=== PATIENT | male | born 1965 | race Caucasian/White ===

== ENCOUNTER 2025-05-30 18:26 | Inpatient (IN) | payer BC ==
[~2025-05-30] VITALS: Ht 188 cm; Wt 100.1 kg
[~2025-05-30 18:26] MED LIST: LIDOcaine 1% 30ml preserv. free vial ONE; fentaNYL/PF 50MCG/1 ML 2ML syringe ONE; heparin 1,000unit/ml 10ml vial 10 ML ONE; midazolam 1 mg/ML 2ml injection ONE
[2025-05-30 20:58] VITALS: BP_SYST 113; PULSE 53; RESP 18; O2SAT 100
[2025-05-30] MEDS ORDERED: tirofiban 12.5mg in NS 250mL 250 ML IV ONE (21:38)
[2025-05-30 22:32] VITALS: PULSE 49; RESP 16; O2SAT 100
[2025-05-30 22:44] LABS: ABG BASE EXCESS -3.4 mmol/L (-2.0-3.0); ABG HCO3 21.1 mmol/L (21.0-28.0); ABG OXYGEN SATURATION 99.8 % (94.0-98.0); ABG PCO2 (T) 33.6 mmHg (35.0-48.0); ABG PH (T) 7.408 (7.350-7.450); ABG PO2 (T) 387.0 mmHg (83.0-108.0); FCOHb 0.5 % (0.5-1.5); FHHb 0.2 % (0.0-5.0); FIO2 100.0 mmHg/%; FMetHb 0.3 % (0.0-1.5); FO2Hb 99.0 % (94.0-98.0); MODE prvc; PATIENT TEMPERATURE 35.4; RESPIRATORY RATE 16 b/min; TIDAL VOLUME 500 mL; TOTAL HEMOGLOBIN 13.3 G/dl (13.5-17.5)
[2025-05-30 23:00] VITALS: BP 133/78; PULSE 52; RESP 16; TEMP 96; O2SAT 100
[2025-05-30] MEDS: propofol 1000mg/100ml bottle 100 ML IV ONE (23:02)
[2025-05-30] MEDS: propofol 1000mg/100ml bottle 100 ML IV SCH (23:03)
[2025-05-30] MEDS: normal saline 1000ml 1,000 ML IV SCH (23:05)
[2025-05-30] MEDS: FENTANYL-0.9 % NACL/PF 100 ML IV SCH (23:11)
[2025-05-30 23:23] LABS: MEAN PLATELET VOLUME 7.0 FL (7.4-10.4); RED CELL DISTRIBUTION WIDTH 13.3 % (11.5-14.5)
[2025-05-30] MEDS ORDERED: OXAZEpam 15mg capsule PO PRN (23:40)
[2025-05-30] MEDS ORDERED: ondansetron/PF 4mg/2ml inj IV PRN (23:40)
[2025-05-30 23:48] LABS: CREATININE 0.71 MG/DL (0.60-1.10); PHOSPHORUS 2.9 MG/DL (2.3-4.5); TOTAL CARBON DIOXIDE 21.4 MMOL/L (24-32); eCRCL 129 ML/MIN; eGFR > 90 ML/MIN
[2025-05-31] VITALS (28 sets, daily range): BP systolic 103–151; BP diastolic 48–85; PULSE 50–82; RESP 10–25; TEMP 97.5–99.7; O2SAT 80–100
[2025-05-31] MEDS: famotidine/PF 10 mg/ml inj IV SCH (00:03)
[2025-05-31 03:09] LABS: MEAN PLATELET VOLUME 7.6 FL (7.4-10.4); RED CELL DISTRIBUTION WIDTH 13.3 % (11.5-14.5)
[2025-05-31 03:12] LABS: CREATININE 0.77 MG/DL (0.60-1.10); TOTAL CARBON DIOXIDE 21.1 MMOL/L (24-32); eCRCL 119 ML/MIN; eGFR > 90 ML/MIN
[2025-05-31 03:22] LABS: ABG BASE EXCESS -3.3 mmol/L (-2.0-3.0); ABG HCO3 19.4 mmol/L (21.0-28.0); ABG OXYGEN SATURATION 99.2 % (94.0-98.0); ABG PCO2 (T) 27.7 mmHg (35.0-48.0); ABG PH (T) 7.462 (7.350-7.450); ABG PO2 (T) 239.0 mmHg (83.0-108.0); FCOHb 0.3 % (0.5-1.5); FHHb 0.8 % (0.0-5.0); FIO2 55.0 mmHg/%; FMetHb 0.3 % (0.0-1.5); FO2Hb 98.6 % (94.0-98.0); PATIENT TEMPERATURE 36.4; PEEP 6 cm H2O; RESPIRATORY RATE 16 b/min; TIDAL VOLUME 500 mL; TOTAL HEMOGLOBIN 12.7 G/dl (13.5-17.5)
[2025-05-31 04:01] LABS: MODE VENT- PRVC
--- NOTE | 2025-05-31 06:16 | RADIOLOGY REPORT ---
CHEST RADIOGRAPH Indication: ET Tube PLacement Technique: Single frontal view of the chest was obtained COMPARISON: None FINDINGS: Lines and Tubes: The endotracheal tube tip projects approximately 4.7 cm above the level of the jenny a. Enteric catheter courses below the level of the diaphragm and terminates beyond the inferior daphney n of the image. Lungs: Clear Pleura: No effusion. No pneumothorax. Cardiomediastinal contours: Unremarkable Bones: Unremarkable IMPRESSION: 1. No acute disease. 2. Endotracheal tube and enteric catheter as above.
--- NOTE | 2025-05-31 06:25 | ELECTROCARDIOGRAPH REPORT ---
[facility] Test Date: 2025-05-31 Test Time: 06:24:22 Pat Name: TOD SAMPLES Department: 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 Anny Erazo Please click the below link to view image of tracing.
[2025-05-31] MEDS ORDERED: ATOR10TA70 PO (07:15)
[2025-05-31] MEDS ORDERED: METO-395 PO (07:15)
[2025-05-31] MEDS ORDERED: LISI5TAB22 PO (07:15)
[2025-05-31] MEDS ORDERED: atropine 0.1mg/ml 10ml syringe ONE (08:00)
[2025-05-31] MEDS: HYDROcodone/acetaminophen 5mg/325mg tablet PO PRN (09:30)
[2025-05-31] MEDS: HYDROmorphone inj. 0.5 MG/0.5 ML DISP.SYRIN IV PRN (09:31)
[2025-05-31] MEDS: aspirin 81mg, enteric-coated 1 TAB TABLET.DR PO SCH (10:25)
[2025-05-31 11:28] LABS: CREATININE 0.69 MG/DL (0.60-1.10); TOTAL CARBON DIOXIDE 22.6 MMOL/L (24-32); eCRCL 132 ML/MIN; eGFR > 90 ML/MIN
[2025-05-31] MEDS: magnesium sulf-water 2g/50mL 50 ML IV ONE (11:54)
--- NOTE | 2025-05-31 12:03 | CONSULTATION REPORT ---
History of Present Illness Providers to CC CC: ROXANN ERAZO MD ~ Reason for Admit\Admit Dx: Cardiology consultation History of Present Illness This is a 60-year-old male who presented secondary to chest pain and shortness for breath. Found to have a STEMI to the anterior region. He was transferred from [facility]. Had a cardiac arrest at [facility] that was ventricular fibrillation. Underwent cardioversion. He then went into a wide complex tachycardia that was treated with magnesium and amiodarone. He also sustained a cardiac arrest in route which was reportedly non shockable. Upon arrival patient was taken emergently to the cardiac catheterization lab where he underwent PCI of the LAD with Dr. Colette Erazo. This morning he was extubated. Currently complaining of chest pain that is worse with breathing, palpation and movement. Likely secondary to CPR. He states no current shortness for breath. Allergies: Coded Allergies: No Known Drug Allergies (Verified Allergy, Unknown, 05/30/25) Home Medications Home Medications Active Reported Atorvastatin Calcium 10 Mg Tablet 1 Tab PO HS Metoprolol Succinate 25 Mg Tab.sr.24h 1 Tab PO DAILY Lisinopril 5 Mg Tablet 1 Tab PO DAILY Past Medical History Medical History Comment Hypertension Hyperlipidemia A leaky heart valve Untreated sleep apnea pending further testing Past Surgical History Surgical History Comment No surgical history Past Family History Family History Comment Father had an SD in his 40s. Mother had history of CHF Past Social History Social History Comment Nonsmoker. Occasional alcohol use. No recreational drugs. Physical Exam Last Vital Signs Recorded: RN Vital Signs have been reviewed: Yes, Temperature: 98.2, Source: Temporal, Heart Rate: 77, Respiratory Rate: 13, BP: 146/82, Pulse Oximetry: 97, Weight: 100.100 Physical Exam General: Awake, alert, oriented. No apparent distress Neck: Supple. Normal range of motion. No JVD Respiratory: Lungs are clear to auscultation bilaterally. No respiratory distress. Chest: Normal shape and size. No accessory muscle use. Cardiovascular: Regular rate and rhythm. S1-S2. +murmur. No gallop, rub. Gastrointestinal: Abdomen is soft. Nontender to palpation. Bowel sounds present. Extremities: No lower extremity edema, cyanosis or clubbing. Neurologic: Alert and oriented x4. Nonfocal Psychiatric: Normal mood and affect. Skin: Normal color. Warm and dry. Review of Systems ROS Review of systems negative except documented in HPI. Results Echocardiogram Echocardiogram Preliminary echocardiogram demonstrates an LVEF of 40-45% with moderate to severe MR Diagram Lab Result Diagram: 05/31/25 0225 05/31/25 5405 Assessment/Plan Additional Plan This is a 60-year-old male who presented with chest pain. The following is his problem list: STEMI Status post PCI of the LAD --Aggrastat for 18 hours --Brilinta 90 mg twice daily --aspirin 81 mg daily --increase statin to 80 mg daily and check lipids. --continue home metoprolol --continue home lisinopril --referral for cardiac rehab. Hopefully can be arranged and patient's hometown. Cardiac arrest with ROSC --see above Heart failure with mid-range ejection fraction TTE demonstrates an LVEF of 40-45% with wall motion abnormalities present. --continue metoprolol succinate --continue lisinopril --repeat echocardiogram outpatient Nonrheumatic mitral insufficiency TTE demonstrates moderate to severe MR No current shortness for breath --Lasix as needed for shortness for breath --continue outpatient follow up Hypertension --continue home meds Case discussed with Dr. Colette Erazo. Requires monitoring for at least 48 hours post procedure. Supervising MD Supervising Physician: MIKY Benson NP May 31, 2025 12:03
[2025-05-31] MEDS: potassium Cl 20 mEq SR tablet PO STA (12:58)
[2025-05-31] MEDS: tirofiban 12.5mg in NS 250mL 250 ML IV SCH (13:01)
--- NOTE | 2025-05-31 17:57 | CONSULTATION REPORT - RESIDENT ---
Consult Providers to CC Resident Creating Document: IGNACIOKATELYNWULIZBETH POLANCO History of Present Illness Primary Medical Doctor: Dr. Young, [facility], [facility] Reason for Admit\Complaint: STEMI History of Present Illness He has a 60-year-old gentleman with past medical history of hypertension, leaky heart valve, hyperlipidemia, status post sudden cardiac arrest/VF with ROSC with cardioversion, magnesium & amiodarone and he was transferred from [facility] for STEMI. He endorses chest pain, retrosternal, 8 to 9/10, squeezing type of pain, aggravating with exertion. Had a cardiac arrest at [facility] that was ventricular fibrillation &Underwent cardioversion. He developed wide complex tachycardia that was treated with magnesium and amiodarone. He also sustained a non shockable cardiac arrest in route to [facility]. Upon arrival patient was taken emergently to the cardiac catheterization lab where he underwent PCI of the LAD with Dr. Colette Erazo. He was extubated this morning and still complaining of the chest pain but a lot better from the previous day. He denied shortness of breath, palpitations, wheezing, swelling of the legs, facial puffiness, abdominal pain, abdominal distention. We are consulted for hospitalist services while patient is in ICU and he was later shifted from ICU to PCU. Allergies: Coded Allergies: No Known Drug Allergies (Verified Allergy, Unknown, 05/30/25) Home Medications Home Medications Active Reported Atorvastatin Calcium 10 Mg Tablet 1 Tab PO HS Metoprolol Succinate 25 Mg Tab.sr.24h 1 Tab PO DAILY Lisinopril 5 Mg Tablet 1 Tab PO DAILY Past Medical History Past Medical History Hypertension Hyperlipidemia Mitral regurgitation Sleep apnea Childhood asthma Past Surgical History Surgical History Comment Noncontributory Family History Family History: FH: CAD (coronary artery disease) FH: CHF (congestive heart failure) FH: coronary artery disease Past Social History Social History Comment Denied smoking, illicit recreational drug use. Occasional alcohol use -couple of drinks of whiskey a week ROS ROS Reviewed in full and negative except positive pertinent as in HPI Exam Vitals: Vital Signs Date Time Temp Pulse Resp B/P (MAP) Pulse Ox O2 Delivery O2 Flow Rate FiO2 05/31/25 17:00 97.6 78 15 132/82 (99) 94 Room Air 05/31/25 16:00 3.0 05/31/25 08:00 40 General: General: Awake, alert, oriented. No apparent distress Neck: Supple. Normal range of motion. No JVD Respiratory: Lungs are clear to auscultation bilaterally. No respiratory distress. Chest: Normal shape and size. No accessory muscle use. Cardiovascular: Regular rate and rhythm. S1-S2. +murmur. No gallop, rub. Gastrointestinal: Abdomen is soft. Nontender to palpation. Bowel sounds present. Extremities: No lower extremity edema, cyanosis or clubbing. Systolic murmur over the mitral and aortic area 3/6. Neurologic: Alert and oriented x4. Nonfocal Psychiatric: Normal mood and affect. Skin: Normal color. Warm and dry. Diagnostic Data Last Recorded Lab Results: 05/31/25 0225 05/31/25 1055 Additional Plan STEMI status post PCI of LAD Cardiac arrest (VFib) status post successful ROSC Acute systolic heart failure with ejection fraction of 40-45% Moderate severe mitral regurgitation Hypertension Hyperlipidemia Normocytic normochromic anemia Hyperchloremia Hypocalcemia Mild protein malnutrition Hypoalbuminemia Vitals are stable with room air. CBC showed normocytic normochromic anemia. CMP is unremarkable except CO2 of 22.6. A1c of 5.5. Albumin of 2.[address] Erazo is on board . Continuing aspirin 81 mg, Brilinta 90 mg p.o. b.i.d., atorvastatin 80 mg, lisinopril 5 mg, metoprolol 25 mg Received Aggrastat for 18 hours. We will referral for cardiac rehab. Follow up with repeat echocardiogram and outpatient TTE demonstrates moderate to severe MR. We will continue Lasix as p.r.n. for shortness for breath LDL is 96 and we started ezetimibe 10 mg in addition to atorvastatin 80 mg We will continue to monitor tele. Status: Full code Diet: Heart healthy diet PT: Ordered Prognosis: Guarded Wu [place] IM resident, PGY2 Date of Service: May 31, 2025 Billing Provider: SUNIL ZAMORA MD, VENKATESH, RES May 31, 2025 17:57
[2025-05-31] MEDS ORDERED: magnesium sulf-water 2g/50mL 50 ML IV PRN (18:00)
[2025-05-31] MEDS ORDERED: potassium Cl 40MEQ/1/2NS 520ml 520 ML IV PRN (18:00)
[2025-05-31] MEDS ORDERED: potassium Cl 20 mEq SR tablet PO PRN ×2 (18:00)
[2025-05-31] MEDS ORDERED: sodium phosphate inj. 30 MMOL in dextrose 5%-water 250 ML IV PRN (18:00)
[2025-05-31] MEDS ORDERED: sodium phosphate inj. 15 MMOL in dextrose 5%-water 250 ML IV PRN (18:00)
[2025-05-31] MEDS ORDERED: magnesium sulf-water 4G/100mL 100 ML IV PRN (18:00)
[2025-05-31] MEDS ORDERED: magnesium Cl slow-release 64mg tablet PO PRN (18:00)
[2025-05-31] MEDS: potassium Cl 20 mEq SR tablet PO SCH (18:04)
[2025-05-31 18:23] LABS: CHOL/HDL RATIO 2.9 (0.00-4.99); LDL CHOLESTEROL 96 MG/DL (50-100)
[2025-05-31] MEDS: K and/or MAG REPLACEMENT MC SCH (19:27)
--- NOTE | 2025-05-31 20:13 | CONSULTATION REPORT - RESIDENT ---
Consult Providers to CC Resident Creating Document: CLEMENTE SOLIS, RES CC: MARINA SOUTH MD History of Present Illness Reason for Admit\Complaint: STEMI History of Present Illness A 60-year-old male with PMH of HTN, HLD was transferred from [place] in view of STEMI and cardiac arrest. Patient went to [facility] this morning in view of chest pain angina equivalent. On further investigations patient was found to have ST elevations in anterior leads and patient coded while in the hospital (non shockable rhythm). On the way of being transported to [facility] patient coded again which is around she couple rhythm again. Patient was immediately transported to the label designer, stent placed in LAD and transferred to ICU for further monitoring. Allergies: Coded Allergies: No Known Drug Allergies (Verified Allergy, Unknown, 05/30/25) Home Medications Home Medications Active Reported Atorvastatin Calcium 10 Mg Tablet 1 Tab PO HS Metoprolol Succinate 25 Mg Tab.sr.24h 1 Tab PO DAILY Lisinopril 5 Mg Tablet 1 Tab PO DAILY Past Medical History Past Medical History Mitral regurgitation Sleep apnea Asthma HTN HLD Past Surgical History Surgical History Comment None Family History Family History: FH: CAD (coronary artery disease) FH: CHF (congestive heart failure) FH: coronary artery disease Past Social History Social History Comment Occasional consumption of alcohol Does not smoke or use illicit drugs/marijuana ROS ROS All other systems reviewed in full and negative except for the pertinent positives mentioned in the HPI Exam Vitals: Vital Signs Date Time Temp Pulse Resp B/P (MAP) Pulse Ox O2 Delivery O2 Flow Rate FiO2 05/31/25 18:30 78 05/31/25 17:00 97.6 15 132/82 (99) 94 Room Air 05/31/25 16:00 3.0 05/31/25 08:00 40 General: General: Alert, awake, oriented, not in acute distress HEENT: PERRLA, no icterus, pallor, lymphadenopathy, carotid bruit Respiratory system: Bilateral vesicular breath sounds heard, no adventitious breath sounds CVS: S1-S2 heard, grade 3/6 HSM in the mitral area radiating to the tricuspid GI: Soft, nontender, no organomegaly, no guarding/rigidity, bowel sounds present Neuro: No focal neurological deficits present Extremities: No edema cyanosis clubbing/deformities Skin: Warm and dry Diagnostic Data Last Recorded Lab Results: 05/31/25 0225 05/31/25 1055 Additional Plan Assessment: A 60-year-old male with multiple medical comorbidities was transferred from [facility] in view of STEMI and cardiac arrest. Patient underwent cardiac catheterization status post stent placement in LAD and has been transferred to the ICU for further monitoring. Plan: STEMI s/p PTCA to LAD on 05/30/2025 Cardiac arrest with ROSC, unknown time period Patient currently extubated On Aggrastat drip On Brilinta Sublingual nitroglycerin 0.4 mg p.r.n. for chest pain Consider optimization with GDM T Transaminitis Probably reactive Continue to monitor HTN HLD continue home meds Sleep apnea Outpatient follow up Code status: Full code Diet: Heart healthy Anticoagulation: Brilinta Disposition: Continue care in CICU, patient is stable for the transfer to floor Clemente Solis MD Internal Medicine, PGY 2 Date of Service: May 31, 2025 Billing Provider: MARINA SOUTH MD, SIVA, RES May 31, 2025 20:13
--- NOTE | 2025-05-31 23:42 | ELECTROCARDIOGRAPH REPORT ---
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 Anny Erazo Measurements Intervals [place] Rate: 76 P: 42 KS: 137 QRS: 13 QRSD: 87 T: 65 QT: 365 QTc: 411 Interpretive Statements Sinus rhythm Anteroseptal infarct, age indeterminate Lateral leads are also involved Electronically Signed On 06-01-2025 7:07:[address] Anny Erazo Please click the below link to view image of tracing.
[2025-06-01] VITALS (9 sets, daily range): BP systolic 101–129; BP diastolic 64–81; PULSE 67–82; RESP 13–23; TEMP 97.3–98.8; O2SAT 92–97
[2025-06-01] MEDS ORDERED: mineral oil/petrolatum ophthal oint EACHEYE SCH (02:00)
--- NOTE | 2025-06-01 06:05 | CARDIOLOGY REPORT ---
APPROVED REPORT EXAM: Comprehensive 2D, Doppler, and color-flow Echocardiogram. Patient Location: 2013 A Blood Pressure: 143/78 mmHg Heart Rate: 65 bpm Rhythm: SINUS Indications MYOCARDIAL INFARCTION S/P STENT X1 Patient Clerical Assistant: Fausto Erazo MD (consult) Previous echo: none 2D Dimensions RVDd 3.1 cm LA Diam4.3 cm IVSd 1.1 (0.7-1.1cm) LVDd 4.8 cm PWd 1.3 (0.7-1.1cm) IVSs 1.3 (0.8-1.2cm) LVDs 3.6 (2.5-4.0cm) PWs 1.3 (0.8-1.2cm) LVOT Diameter 2.17 (1.8-2.4cm) LVEF(%) 50.6 (>50%) IVC 21.30 mmFS (%) 25.7 % SV 53.9 ml CO 4.7 L/min M-Mode Dimensions Left Atrium(MM) 2.88 (2.5-4.0cm) IVSd 0.66 (0.7-1.1cm) Aortic Root 3.81 (2.2-3.7cm) PWd 0.97 (0.7-1.1cm) Aortic Cusp Exc 2.57 (1.5-2.0cm) IVSs 0.51 cm LVDs 4.86 (2.0-3.8cm) FS (%) 19 % PWs 1.83 cm ESV(Teich) 110.8 ml LVEF(%) 39 (>50%) Biplane 2D LA Volumes LA ESV Index 18.56 mL/m2 Aortic Valve AoV Peak Rafiq. 124.0 cm/s AoV VTI 24.3 cm AO Peak GR. 6.1 mmHg AO Mean GR. 3 mmHg LVOT VTI 18.13 cm LVOT Peak Rafiq. 85.6 cm/s JOANNE(VTI)/BSA 2.75 cm2/m2 JOANNE (VTI) 2.75 cm2 Mitral Valve MV E Velocity 85.3 cm/s MV Peak Gr. 3 mmHg MV DECEL TIME 196 ms MV A Velocity 61.8 cm/s MV PHT 56 ms E/A Ratio 1.4 MVA (PHT) 3.93 cm2 MV VMax81.1 cm/s TDI Medial E' P. V 9.54 cm/s E/Medial E' 8.9 Tricuspid Valve TR P. Velocity 297 cm/s RAP ESTIMATE 10 mmHg TR Peak Gr. 35 mmHg RVSP 45 mmHg Pulmonary Vein S1 Velocity 41.9 cm/s D2 Velocity 38.1 cm/s PVa Kpohjczl81.8 cm/s PVa [id number] msec LEFT VENTRICLE Normal LV size and wall thickness. Overall systolic function is moderately reduced. Multisegmental wa ll motion abnormalities. LVEF is 40-45%. RIGHT VENTRICLE RV is normal size and function. RVSP is estimated at 45 mmHg. ATRIA LA size is normal. AORTIC VALVE Trileaflet AV appears mildly sclerotic without stenosis or insufficiency. MITRAL VALVE Mild MV annular calcification and leaflet thickening without stenosis. Moderate to severe regurgitati on. TRICUSPID VALVE TV appears structurally normal with trace regurgitation. PULMONIC VALVE Normal PV without stenosis, physiologic insufficiency. GREAT VESSELS Aortic root is dilated. IVC is dilated and collapses less than 50% with inspiration. PERICARDIUM Normal pericardium. No effusion. Other Information Study Quality: Adequate Conclusion Normal LV size and wall thickness. Overall systolic function is moderately reduced. Multisegmental wa ll motion abnormalities. LVEF is 40-45%. RV is normal size and function. RVSP is estimated at 45 mmHg. LA size is normal. Trileaflet AV appears mildly sclerotic without stenosis or insufficiency. Mild MV annular calcification and leaflet thickening without stenosis. Moderate to severe regurgitat ion. TV appears structurally normal with trace regurgitation. Aortic root is dilated. Normal pericardium. No effusion.
[2025-06-01] MEDS: metoprolol succinate 25mg (24-HOUR) SR. Tablet PO SCH (07:58)
[2025-06-01 08:21] LABS: MEAN PLATELET VOLUME 7.9 FL (7.4-10.4); RED CELL DISTRIBUTION WIDTH 13.3 % (11.5-14.5)
[2025-06-01 08:54] LABS: CREATININE 0.74 MG/DL (0.60-1.10); PHOSPHORUS 2.2 MG/DL (2.3-4.5); TOTAL CARBON DIOXIDE 21.8 MMOL/L (24-32); eCRCL 123 ML/MIN; eGFR > 90 ML/MIN
--- NOTE | 2025-06-01 18:59 | PROGRESS NOTE ---
Progress Note Cardiology Providers to CC ~ Subjective Subjective Pt. states that he still feels sore in the chest/rib area from CPR compressions. R groin tender. Otherwise denies any chest pain/pressure or SOB. Objective Result Diagram: 06/01/25 0706/01/25 0713 Objective General: Awake, alert, oriented. No apparent distress Neck: Supple. Normal range of motion. No JVD Respiratory: Lungs are clear to auscultation bilaterally. No respiratory distress. Chest: Normal shape and size. No accessory muscle use. Cardiovascular: Regular rate and rhythm. S1-S2. +murmur. No gallop, rub. Gastrointestinal: Abdomen is soft. Nontender to palpation. Bowel sounds present. Extremities: No lower extremity edema, cyanosis or clubbing. Systolic murmur over the mitral and aortic area /. R groin puncture site without significant ecchymosis, no drainage or oozing. Neurologic: Alert and oriented x4. Nonfocal Psychiatric: Normal mood and affect. Skin: Normal color. Warm and dry. Problem\Assessment\Plan Additional Plan STEMI s/p PCI with stent placement to LAD. -Continue Brilinta 90mg BID -Continue ASA 81mg QD -Continue Atorvastatin 80mg QHS -Continue Metoprolol Succinate 25mg QD -Continue Lisinopril 5mg QD -Continue Zetia 10mg QD He continues to improve. Barring any decline in his condition, plan for discharge 06/02/25. Supervising Physician: KOLBY Trevino DRAG SEINER Jun 01, 2025 18:59
--- NOTE | 2025-06-01 20:14 | PROGRESS NOTE- Residence ---
Progress Note - Resident Providers to CC Resident Creating Document: LIDYA COONEY RES ~ Antibiotic Timeout Antibiotic Ordered?: No Subjective Seen and examined the patient at bedside. He still complained of pain over the chest- rib area after the CPR compressions. No other complaints of palpitations, shortness of breath. Objective Vital Signs Date Time Temp Pulse Resp B/P (MAP) Pulse Ox O2 Delivery O2 Flow Rate FiO2 06/01/25 15:40 17 06/01/25 15:00 97.6 70 129/73 (91) 97 Room Air 05/31/25 16:00 3.0 05/31/25 08:00 40 Result Diagram: 06/01/25 0713 06/01/25 0713 General: Awake, alert, oriented. No apparent distress Neck: Supple. Normal range of motion. No JVD Respiratory: Lungs are clear to auscultation bilaterally. No respiratory distress. Chest: Normal shape and size. No accessory muscle use. Cardiovascular: Regular rate and rhythm. S1-S2. +murmur. No gallop, rub. Gastrointestinal: Abdomen is soft. Nontender to palpation. Bowel sounds present. Extremities: No lower extremity edema, cyanosis or clubbing. Systolic murmur over the mitral and aortic area 3/6. R groin puncture site without significant ecchymosis, no drainage or oozing. Neurologic: Alert and oriented x4. Nonfocal Psychiatric: Normal mood and affect. Skin: Normal color. Warm and dry Advance Care Planning Advanced Care plannin - 30 Minutes Plan Plan STEMI status post PCI of LAD Cardiac arrest (VFib) status post CPR, cardioversion and successful ROSC Acute systolic heart failure with ejection fraction of 40-45% Moderate severe mitral regurgitation Hypertension Hyperlipidemia Normocytic normochromic anemia Hyperchloremia Hypocalcemia Mild protein malnutrition Hypoalbuminemia Hypophosphatemia Vitals are stable. H&H is 12.2 and 35.5. A1c of 5.5. Albumin of 2.[address] Erazo is on board . We will continue aspirin 81 mg, Brilinta 90 mg p.o. b.i.d., atorvastatin 80 mg, lisinopril 5 mg, metoprolol 25 mg and ezetimibe 10 mg p.o. daily Needs cardiac rehabilitation Follow up with repeat echocardiogram and outpatient TTE demonstrates moderate to severe MR. We will continue Lasix as p.r.n. for shortness for breath We will continue to monitor tele. On phosphorus replacement protocol Status: Full code Diet: Heart healthy diet PT: Ordered Prognosis: Guarded Disposition: Anticipate discharge in a.Viridiana Cooney IM resident, PGY2 Date of Service: Jun 01, 2025 Billing Provider: SUNIL [facility]ORA [facility] Jun 01, 2025 20:14
--- NOTE | 2025-06-01 20:45 | RADIOLOGY REPORT ---
CHEST RADIOGRAPH Indication: Status post CPR, rib fracture Technique: 1 view Comparison: DI CHEST,SINGLE VIEW on DOS: 05/31/25 FINDINGS: Lines and Tubes: Endotracheal and enteric extubation. Lungs: Perihilar interstitial opacities redemonstrated. No focal consolidation. Pleura: No effusion or pneumothorax. Cardiomediastinal contours: Unremarkable. Other: No acute osseous abnormality. IMPRESSION: 1. Interval endotracheal and enteric extubation. No other significant change from the prior exam.
[2025-06-02 02:00] VITALS: BP 133/78; PULSE 94; RESP 19; TEMP 97.9; O2SAT 98
[2025-06-02 07:32] LABS: MEAN PLATELET VOLUME 7.8 FL (7.4-10.4); RED CELL DISTRIBUTION WIDTH 13.2 % (11.5-14.5)
[2025-06-02 07:50] LABS: CREATININE 1.04 MG/DL (0.60-1.10); PHOSPHORUS 2.0 MG/DL (2.3-4.5); TOTAL CARBON DIOXIDE 23.4 MMOL/L (24-32); eCRCL 88 ML/MIN; eGFR 73 ML/MIN
[2025-06-02 08:00] VITALS: BP_SYST 122; PULSE 70; RESP 16; O2SAT 96
[2025-06-02] MEDS ORDERED: TICA90TA2 PO (10:27)
[2025-06-02] MEDS ORDERED: FAMO20TA8 PO (10:41)
[2025-06-02] MEDS ORDERED: EZET10TA6 PO (10:41)
[2025-06-02] MEDS ORDERED: ASPI81TA52 PO (10:41)
[2025-06-02] MEDS ORDERED: ATOR20TA66 PO (10:41)
[2025-06-02] MEDS ORDERED: NITR0.4T51 SL (10:41)
--- NOTE | 2025-06-02 19:47 | DISCHARGE SUMMARY-Residence ---
Discharge Summary Providers to CC Resident Creating Document: LIDYA COONEY, RES ~ Discharge Summary Admission Diagnosis: STEMI Hospital Course DATE OF ADMISSION: 05/31/2025 DATE OF DISCHARGE: 06/02/2025 Chest x-ray on 05/31/2025 FINDINGS: Lines and Tubes: The endotracheal tube tip projects approximately 4.7 cm above the level of the brittnee. Enteric catheter courses below the level of the diaphragm and terminates beyond the inferior margin of the image. Lungs: Clear Pleura: No effusion. No pneumothorax. Cardiomediastinal contours: Unremarkable Bones: Unremarkable IMPRESSION: 1. No acute disease. 2. Endotracheal tube and enteric catheter as above. Echocardiogram on 05/31/2025 EXAM: Comprehensive 2D, Doppler, and color-flow Echocardiogram. Patient Location: 2013 A Blood Pressure: 143/78 mmHg Heart Rate: 65 bpm Rhythm: SINUS Indications MYOCARDIAL INFARCTION S/P STENT X1 Systems Project Manager: Fausto Erazo MD (consult) Previous echo: none 2D Dimensions RVDd 3.1 cm LA Diam 4.3 cm IVSd 1.1 (0.7-1.1cm) LVDd 4.8 cm PWd 1.3 (0.7-1.1cm) IVSs 1.3 (0.8-1.2cm) LVDs 3.6 (2.5-4.0cm) PWs 1.3 (0.8-1.2cm) LVOT Diameter 2.17 (1.8-2.4cm) LVEF(%) 50.6 (>50%) IVC 21.30 mm FS (%) 25.7 % SV 53.9 ml CO 4.7 L/min M-Mode Dimensions Left Atrium(MM) 2.88 (2.5-4.0cm) IVSd 0.66 (0.7-1.1cm) Aortic Root 3.81 (2.2-3.7cm) PWd 0.97 (0.7-1.1cm) Aortic Cusp Exc 2.57 (1.5-2.0cm) IVSs 0.51 cm LVDs 4.86 (2.0-3.8cm) FS (%) 19 % PWs 1.83 cm ESV(Teich) 110.8 ml LVEF(%) 39 (>50%) Biplane 2D LA Volumes LA ESV Index 18.56 mL/m2 Aortic Valve AoV Peak Rafiq. 124.0 cm/s AoV VTI 24.3 cm AO Peak GR. 6.1 mmHg AO Mean GR. 3 mmHg LVOT VTI 18.13 cm LVOT Peak Rafiq. 85.6 cm/s JOANNE(VTI)/BSA 2.75 cm2/m2 JOANNE (VTI) 2.75 cm2 Mitral Valve MV E Velocity 85.3 cm/s MV Peak Gr. 3 mmHg MV DECEL TIME 196 ms MV A Velocity 61.8 cm/s MV PHT 56 ms E/A Ratio 1.4 MVA (PHT) 3.93 cm2 MV VMax 81.1 cm/s TDI Medial E' P. V 9.54 cm/s E/Medial E' 8.9 Tricuspid Valve TR P. Velocity 297 cm/s RAP ESTIMATE 10 mmHg TR Peak Gr. 35 mmHg RVSP 45 mmHg Pulmonary Vein S1 Velocity 41.9 cm/s D2 Velocity 38.1 cm/s PVa Velocity 29.8 cm/s PVa Duration 112 msec LEFT VENTRICLE Normal LV size and wall thickness. Overall systolic function is moderately reduced. Multisegmental wall motion abnormalities. LVEF is 40-45%. RIGHT VENTRICLE RV is normal size and function. RVSP is estimated at 45 mmHg. ATRIA LA size is normal. AORTIC VALVE Trileaflet AV appears mildly sclerotic without stenosis or insufficiency. MITRAL VALVE Mild MV annular calcification and leaflet thickening without stenosis. Moderate to severe regurgitation. TRICUSPID VALVE TV appears structurally normal with trace regurgitation. PULMONIC VALVE Normal PV without stenosis, physiologic insufficiency. GREAT VESSELS Aortic root is dilated. IVC is dilated and collapses less than 50% with inspiration. PERICARDIUM Normal pericardium. No effusion. Other Information Study Quality: Adequate Conclusion Normal LV size and wall thickness. Overall systolic function is moderately reduced. Multisegmental wall motion abnormalities. LVEF is 40-45%. RV is normal size and function. RVSP is estimated at 45 mmHg. LA size is normal. Trileaflet AV appears mildly sclerotic without stenosis or insufficiency. Mild MV annular calcification and leaflet thickening without stenosis. Moderate to severe regurgitation. TV appears structurally normal with trace regurgitation. Aortic root is dilated. Normal pericardium. No effusion. Chest x-ray on 06/01/2025 FINDINGS: Lines and Tubes: Endotracheal and enteric extubation. Lungs: Perihilar interstitial opacities redemonstrated. No focal consolidation. Pleura: No effusion or pneumothorax. Cardiomediastinal contours: Unremarkable. Other: No acute osseous abnormality. IMPRESSION: 1. Interval endotracheal and enteric extubation. No other significant change from the prior exam. Discharge Diagnosis\Comment: Cardiac arrest VFib status post successful ROSC STEMI status post PCI of LAD Acute systolic heart failure with ejection fraction of 40-45% Moderate severe MR Hypertension Hyperlipidemia Normocytic normochromic anemia Hyperchloremia Hypocalcemia Mild protein malnutrition Hypoalbuminemia Hypophosphatemia Operations\Procedures: Cardiac catheterization with PTCA stenting of LAD by Dr. Erazo Consultants: Dr. Erazo Complications: None Condition on DC: Stable New Medications: Aspirin (Aspirin EC) 81 Mg Tablet.dr 1 TAB PO DAILY for 30 Days, #30 TAB Atorvastatin Calcium (Atorvastatin Calcium) 20 Mg Tablet 80 MG PO DAILY for 30 Days, #120 TAB total daily dose is 80 mg.4 pills of 20mg tablets daily. Ezetimibe (Zetia) 10 Mg Tablet 1 TAB PO DAILY for 30 Days, #30 TAB 0 Refills Famotidine (Famotidine) 20 Mg Tablet 1 TAB PO Q12H for 30 Days, #60 TAB 0 Refills Nitroglycerin SL* (Nitrostat SL*) 0.4 Mg Tablet 1 TAB SL Q5MIN PRN for FOR CHEST PAIN, #25 TAB Ticagrelor (Brilinta) 90 Mg Tablet 90 MG PO BID for ACUTE CORONARY SYNDROME/NSTEMI for 30 Days, #60 TAB 1 Refill Do not stop medication unless instructed by prescriber. Must be on aspirin as well. Continued Medications: Lisinopril (Lisinopril) 5 Mg Tablet 1 TAB PO DAILY Metoprolol Succinate (Metoprolol Succinate) 25 Mg Tab.sr.24h 1 TAB PO DAILY Discharge Summary: HPI at the time of admission per admitting team This is a 60-year-old male who presented secondary to chest pain and shortness for breath. Found to have a STEMI to the anterior region. He was transferred from [facility]. Had a cardiac arrest at [facility] that was ventricular fibrillation. Underwent cardioversion. He then went into a wide complex tachycardia that was treated with magnesium and amiodarone. He also sustained a cardiac arrest in route which was reportedly non shockable. Upon arrival patient was taken emergently to the cardiac catheterization lab where he underwent PCI of the LAD with Dr. Colette Erazo. This morning he was extubated. Currently complaining of chest pain that is worse with breathing, palpation and movement. Likely secondary to CPR. He states no current shortness for breath. Course in the hospital Admitted for STEMI with cardiac arrest VFib status post CPR, cardioversion, successful ROSC. Patient was taken to the dairy laboratory technician and underwent PCI for LAD by Dr. Erazo. Echocardiography showed ejection fraction of 40-45% and new onset of systolic heart failure is noted. Patient received Aggrastat for 18 hours, Brilinta 90 mg twice a day, aspirin 81, atorvastatin 80, ezetimibe 10 mg, l isinopril 5 mg, metoprolol 25 mg p.o. daily. Patient was on phosphorus potassium, magnesium replacement protocol. Patient was discharged on dual antiplatelet agents. Examination time of discharge Vital Signs Date Time Temp Pulse Resp B/P (MAP) Pulse Ox O2 Delivery O2 Flow Rate FiO2 06/02/25 08:00 16 96 Room Air 06/02/25 08:00 70 06/02/25 02:00 97.9 133/78 (96) 05/31/25 16:00 3.0 05/31/25 08:00 40 General: Awake, alert, oriented. No apparent distress Neck: Supple. Normal range of motion. No JVD Respiratory: Lungs are clear to auscultation bilaterally. No respiratory distress. Chest: Normal shape and size. No accessory muscle use. Cardiovascular: Regular rate and rhythm. S1-S2. +murmur. No gallop, rub. Gastrointestinal: Abdomen is soft. Nontender to palpation. Bowel sounds present. Extremities: No lower extremity edema, cyanosis or clubbing. Systolic murmur over the mitral and aortic area 3/6. R groin puncture site without significant ecchymosis, no drainage or oozing. Neurologic: Alert and oriented x4. Nonfocal Psychiatric: Normal mood and affect. Skin: Normal color. Warm and dry Discharge advice You had a cardiac arrest and an acute heart attack. It is very important that you take your medications as prescribed. Take Brilinta 90 mg twice daily. Do not miss any doses. He will take aspirin 81 mg daily for life. We have increased your atorvastatin as we discussed. Continue metoprolol and lisinop ril. Recommend that you follow up within 1-2 weeks with Cardiology. Please call [phone] to arrange follow up at Dr. Erazo's office. fup with pcp for TCM care. read side effects of prescribed medication. call 911 or visit er if emeregency *Problems/Diagnosis: (1) STEMI (ST elevation myocardial infarction) (2) Post PTCA (3) Presence of stent in LAD coronary artery (4) Cardiac arrest (5) Ventricular fibrillation (6) Acute systolic heart failure (7) Heart failure with reduced ejection fraction (8) Nonrheumatic mitral (valve) insufficiency (9) Hypertension (10) Hyperlipidemia (11) Normocytic normochromic anemia (12) Hyperchloremia (13) Hypocalcemia (14) Mild protein malnutrition (15) Hypoalbuminemia (16) Hypophosphatemia Total Time Spent on D/C: > 30 Minutes Date of Service: Jun 02, 2025 Billing Provider: SUNIL ZAMORA MD, VENKATESH, RES Jun 02, 2025 19:47
--- NOTE | 2025-06-19 19:01 | CARDIOLOGY REPORT ---
DATE OF SERVICE: 05/30/2025 DICTATING PHYSICIAN: Anny Erazo MD CARDIAC CATHETERIZATION REPORT DATE OF STUDY: 05/30/2025. PROCEDURES: * Left heart catheterization. * Selective coronary angiography. * Left ventriculography. * Angioplasty of the left anterior descending coronary artery. * Stenting x 1 of the left anterior descending coronary artery. * Conscious sedation monitoring time for 60 minutes. INDICATION: STEMI. PHYSICIAN: Anny Erazo MD DESCRIPTION OF PROCEDURE: After informed consent was obtained, the patient was brought to the lab, where he was prepped and draped in the usual sterile fashion. A 6-B[place] sheath was inserted into the right femoral artery. Next, using a JR4 followed by an XB LAD guiding catheter, selective coronary angiography was performed. PCI was then performed as described below. Following PCI, the pigtail catheter was advanced into the left ventricle where left ventriculography was performed. HEMODYNAMICS: For the patient's hemodynamics, please refer to the event log. Left ventricular end diastolic pressure was 27 mmHg. FINDINGS: The left main coronary artery is a medium-caliber vessel with mild 20% stenosis. The left anterior descending coronary artery is a medium-caliber bifurcating LAD. At the bifurcation, the vessel is occluded with ROSETTA-1 flow. The circumflex coronary artery is a medium-caliber vessel with mild disease of the obtuse marginal branch. The right coronary artery is a large dominant vessel with a 30% mid-vessel stenosis and 20% distal stenosis. Left ventriculography revealed the presence of anteroapical hypokinesis. Left ventricular end diastolic pressure is 27 mmHg. Percutaneous coronary intervention: Using a 0.014 ChoICE PT wire, the wire was carefully navigated across the lesion. The lesion was then predilated with a 2.0 x 12 mm Trek balloon to rated burst atmospheres. Next, using a 3.0 x 18 Hayes Neptune stent, the stent was advanced across the lesion, where it was deployed to rated burst atmospheres. Next, the wire was manipulated across the bifurcating LAD, where angioplasty with the 3.0 mm balloon was made. Followup angiography revealed very good angiographic results. IMPRESSION: * Angioplasty/stenting of a bifurcating LAD with a 3.0 x 18 mm Hayes Neptune stent with very good angiographic results. The patient had ROSETTA-1 flow prior to the procedure and ROSETTA-3 flow post procedure. * 30% stenosis of the mid RCA. * Intra-apical hypokinesis. Left ventricular end diastolic pressure is 27 mmHg. Estimated ejection fraction is about 45%. Anny Erazo MD TID: [id number] RECEIPT: [id number] ELISHA/RIZWAN
== END 2025-06-02 11:56 | disposition home or self-care (01) | DRG 321 ==
LOC: ED HOLD 20:39 → CICU 2S 22:13 → PCU 3S 05-31 16:48
PROVIDERS: ADMIT Internal Medicine Interventional Cardiology; ATTEND Internal Medicine Interventional Cardiology
PROC: 027034Z Dilation of Coronary Artery, One Artery with Drug-eluting Intraluminal Device, Percutaneous Approach (ICD-10-PCS; principal; 2025-05-30)
PROC: 4A023N7 Measurement of Cardiac Sampling and Pressure, Left Heart, Percutaneous Approach (ICD-10-PCS; 2025-05-30)
PROC: B2111ZZ Fluoroscopy of Multiple Coronary Arteries using Low Osmolar Contrast (ICD-10-PCS; 2025-05-30)
PROC: B2151ZZ Fluoroscopy of Left Heart using Low Osmolar Contrast (ICD-10-PCS; 2025-05-30)
DX: I21.09 ST elevation (STEMI) myocardial infarction involving other coronary artery of anterior wall (principal); I46.9 Cardiac arrest, cause unspecified; I50.21 Acute systolic (congestive) heart failure; E44.1 Mild protein-calorie malnutrition; I11.0 Hypertensive heart disease with heart failure; I34.0 Nonrheumatic mitral (valve) insufficiency; E78.5 Hyperlipidemia, unspecified; E87.8 Other disorders of electrolyte and fluid balance, not elsewhere classified; E83.51 Hypocalcemia; E88.09 Other disorders of plasma-protein metabolism, not elsewhere classified; D64.9 Anemia, unspecified; E83.39 Other disorders of phosphorus metabolism; Z79.899 Other long term (current) drug therapy; Z68.28 Body mass index [BMI] 28.0-28.9, adult
CPT/HCPCS: 92921; 93306; 93458; 99291; C9606; 36415; 36600; 71045; 80048; 80053; 80061; 82803; 83036; 83735; 84100; 84443; 85018; 85025; 87081; 93005; 94002; 94760; 97161; 97530; 99152; 99153; A4615; A5200; A6213; A6258; A6449; C1725; C1751; C1760; C1769; C1874; G0378; J0169; J0461; J1171; J1644; J2003; J2250; J2704; J3010; J3246; J3490; J7030; J7040; Q9967

== ENCOUNTER 2025-05-30 20:56 | Emergency (ER) | payer BC ==
[2025-05-30] MEDS ORDERED: atropine 0.1mg/ml 10ml syringe ONE (21:07)
[2025-05-30] MEDS ORDERED: epiNEPHrine 0.1mg/ml 10ml syringe ONE (21:07)
--- NOTE | 2025-05-30 21:11 | Physician Documentation ---
History of Present Illness ~ Stated Complaint: STEMI Time Seen by MD: 21:04 OK to notify your PCP?: Yes Source: RN/MD, EMS, RN notes reviewed, EMS notes reviewed, old records Mode of Arrival: EMS, Air Transport Exam Limitations: clinical condition HPI 60 year old male presents to the emergency department as a transfer from [place] for complaints of STEMI and in emergency need of a laboratory assistant. HPI per [place]: 60 year old male with chests pain starting about 45-60 minutes ago. The patient states it was not exertional. He was has a strong family history of cardiac disease, early myocardial infarction in father and mother less than 50 years old. He was not a smoker. The patient had crushing substernal chgest pain wuth shortness of breath and radiation to his upper extremity and back. Blood pressure was initially 130 systolic. The patient was given aspirin 324 and ntg 2 sprays which reduced pain form 8 to 4. Currently the pain has slightly increased to 6. Blood pressure 120/80. Heart rate it was normal and pulse ox 98% on room air. Chest XR 1 View: Impression: 1. No acute cardiopulmonary disease. Medication Reconciliation Allergies: Coded Allergies: No Known Drug Allergies (Verified Allergy, Unknown, 05/30/25) Past Medical History Past Medical History: *CARDIOVASCULAR*, Hypertension Alcohol Use: None Review of Systems ROS Unable to obtain. Physical Exam Vital Signs: RN Vital Signs have been reviewed: Yes Pulse Oximetry Reflects: adequate oxygenation Physical Exam General: Intubated. The patient is well developed, well nourished, nontoxic appearing and is in no acute distress. Skin: Pale, warm and dry with no rashes. HEENT: Head was normocephalic and atraumatic. Eyes - pupils equal, round, reactive to light and accommodation. Extraocular movements unable to evaluate. Conjunctivae were nonicteric. The mouth intubated Neck: Supple There was no jugular venous distention, lymphadenopathy, thyromegaly or masses. Chest: RRR. No accessory muscle use. Heart: Rate regular and rhythmic. S1, S2. No murmurs. Palpation of the chest wall was normal. Abdomen: Soft, nontender and nondistended. Positive bowel sounds. No guarding or rebound. Extremities: No cyanosis, clubbing or edema. Pulses were equal and symmetric. Neurologic: Unable to evaluate Psychologic: Unable to evaluate Progress Results/Orders Reviewed/noted all lab results: Yes Results/Orders Completed Orders - MIGUEL LANDAVERDE MD Atropine Syringe (Atropine Syringe) (05/30/25 21:07) Epinephrine Inj Syringe (Epinephrine Inj (05/30/25 21:07) Ticagrelor Tablet (Brilinta Tablet) (05/30/25 21:48) Vital Signs 05/30/25 05/30/25 22:24 22:49 Pulse 64 Resp 17 Pulse Ox 100 FiO2 100 55 Re-Evaluation Re-Evaluation : Re-Evaluation: Improved Progress Patient was seen and examined. Patient arrived by ambulance and was going straight to the laboratory assistant. Patient was in the ER so a brief exam was performed. Patient was met by Dr. Erazo who was already at the patient's bedside and present upon arrival with EMS. Patient was then immediately taken up to the laboratory assistant. 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 Admission Level of Care: Critcal Care Impression: Primary Impression: STEMI (ST elevation myocardial infarction) Qualified Codes: I21.3 - ST elevation (STEMI) myocardial infarction of unspecified site Additional Impressions: Cardiac arrest Respiratory failure Qualified Codes: J96.01 - Acute respiratory failure with hypoxia Ventricular tachycardia Condition: Critical Referrals: NO PRIMARY CARE PROVIDER (PCP) Education Educated: Patient Educated regarding: diagnosis, treatment, prognosis Critical Care Note Total Time (mins): 30 Critical Care Note The very real possibility of a deterioration of this patient's condition require d the highest level of my preparedness for sudden, emergent intervention. I provided critical care services, which included medication orders, frequent reevaluations of the patient's condition and response to treatment, ordering and reviewing test results, and discussing the case with various consultants. Excludes time spent performing separately billable procedures. The critical care time associated with the care of the patient and pre hospital care was 30 minutes. Signature Scribe Signature: Scribed for Miguel Landaverde MD by Melvina Powers . 05/30/25 23:25 Attestation: The note accurately reflects work and decisions made by me.Miguel Landaverde MD 05/31/25 03:15 MIGUEL LANDAVERDE MD May 30, 2025 21:11 MELVINA HORN May 30, 2025 23:25
[2025-05-30] MEDS ORDERED: normal saline 1000ml 1,000 ML IV SCH (22:10)
[2025-05-30] MEDS ORDERED: LidoCAINE 2% Topical Jelly 11mL syringe (UROJET) TOP ONE (22:10)
--- NOTE | 2025-05-30 22:10 | HISTORY AND PHYSICAL ---
History & Physical - Short Providers to CC ~ History of Present Illness Chief Complain & History Patient is a 60-year-old male who presented to another hospital for chest pain and found to have STEMI. And route to [facility] patient had cardiac arrest with not shockable rhythm. Patient started on amiodarone fentanyl and propofol. At [facility] the LAD was stented in the Clam Bed Laborer. Patient has reduced EF. Patient is off of propofol and fentanyl and amiodarone was also stopped. I received a call from home support worker who asked our team to admit the patient to the ICU. Patient currently is on mechanical ventilation. A-line is in place. Cardiology wants to keep Aggrastat infusion as well as normal saline. Exam Other: sedated on the vent. Advance Care Planning Advanced Care planning: N/A Problem\Assessment\Plan Additional Plan Assessment: - STEMI: Status post LAD stent placement at [facility]. LVEF is 30-35%. - Status post cardiac arrest at other hospital: - Respiratory failure: Patient currently is on mechanical ventilation. Is on PRVC 500/50% +5.ABG 7.40/33/387. -h/o HTN Plan: - Admit to the ICU - Implement ABCDEF mechanical ventilation bundle -Propofol and fent gtt -SAT/SBT in am - ABG and chest x-ray now - CBC, CMP, mag and Phos - Pepcid IV - Continue Aggrastat per cardiology - Continue NS at 75 mL/h - Echocardiogram in the morning -I spoke with his and daughter. GUMARO PEREZ MD May 30, 2025 22:10
[2025-05-30 22:24] VITALS: BP 118/65; PULSE 64; RESP 17; O2SAT 100
[2025-05-30] MEDS ORDERED: ondansetron/PF 4mg/2ml inj IV PRN (22:50)
[2025-05-30] MEDS ORDERED: OXAZEpam 15mg capsule PO PRN (22:50)
[2025-05-30] MEDS ORDERED: HYDROcodone/acetaminophen 5mg/325mg tablet PO PRN (22:55)
[2025-05-31] MEDS ORDERED: ATOR10TA70 PO (07:15)
[2025-05-31] MEDS ORDERED: LISI5TAB22 PO (07:15)
[2025-05-31] MEDS ORDERED: METO-395 PO (07:15)
[2025-05-31] MEDS ORDERED: famotidine/PF 10 mg/ml inj IV SCH (08:00)
[2025-06-01] MEDS ORDERED: polyethylene glycol 3350 17gm powd pack PO PRN (22:10)
== END 2025-05-30 22:50 | disposition admitted as inpatient to this hospital (09) ==
LOC: ER 20:56
DX: I21.3 ST elevation (STEMI) myocardial infarction of unspecified site (principal); I46.9 Cardiac arrest, cause unspecified; J96.01 Acute respiratory failure with hypoxia; I47.20 Ventricular tachycardia, unspecified; I10 Essential (primary) hypertension; Z95.5 Presence of coronary angioplasty implant and graft
CPT/HCPCS: 99291; J0169; J0461